=== PATIENT | female | born 1975 | race American Indian/Alaskan Native ===

== ENCOUNTER 2017-08-27 12:37 | Emergency (ER) | payer BC ==
[2017-08-27] MEDS ORDERED: CATAPRES PO ONE (12:59)
[2017-08-27 13:12] LABS: Basophils # (Auto) 0.1 K/mm3 (0.0-0.1); Basophils % (Auto) 0.7 % (0.0-1.8); Eosinophils # (Auto) 0.3 K/mm3 (0.0-0.4); Eosinophils % (Auto) 2.7 % (0.0-4.3); Hemoglobin 12.5 gm/dl (10.1-14.3); Lymphocytes # (Auto) 2.8 K/mm3 (1.2-5.4); Lymphocytes % (Auto) 27.8 % (13.4-35.0); Mean Corpuscular HGB Conc 34 % (30-34); Mean Corpuscular Hemoglobin 33 pg (28-32); Mean Corpuscular Volume 97 fl (79-97); Monocytes % (Auto) 9.9 % (0.0-7.3); Platelet Count 333 K/mm3 (140-440)
[2017-08-27 13:29] LABS: INR 0.88 (0.87-1.13)
--- NOTE | 2017-08-27 13:36 | Cat Scan Report ---
FINAL REPORT EXAM: CT HEAD/BRAIN WO CON HISTORY: neuro deficits < 6hrs or sx present upon awakening TECHNIQUE: CT examination of the head without IV contrast PRIORS: Cervical spine CT 04/24/2015 FINDINGS: No acute air-fluid level visualized in the included air-filled sinuses. Bone windows demonstrate no acute fracture. The brain is without mass, mass effect, hemorrhage, or acute infarct. There is no extra-axial intracranial bleed, brain bleed, or midline shift. The ventricles and sulci are age-appropriate. IMPRESSION: No acute CVA, intracranial bleed, or brain mass
[2017-08-27 13:43] LABS: BUN/Creatinine Ratio 19; Blood Urea Nitrogen 15 mg/dL (7-17); Calcium 9.1 mg/dL (8.4-10.2); Hemolysis Index 6
[2017-08-27 22:59] VITALS: BP 139/70
--- NOTE | 2017-08-28 00:29 | Emergency Department Report ---
HPI - General Chief Complaint: Extremity Problem,Nontraumatic Time Seen by Provider: 08/28/17 00:26 - HPI HPI: Right leg pain while driving, started in the right hip area although it to her right ankle area. States pain is 4-10 shop and accompanied by numbness. Patient stated also had some numbness in the right face. No weakness able to ambulate without difficulty. Patient has a history of rapid pressure. Denies any slurred speech, denies any headache, denies any vision problem. ED Past Medical Hx - Past Medical History Hx Hypertension: Yes - Surgical History Past Surgical History?: No - Social History Smoking Status: Former Smoker Substance Use Type: Alcohol - Medications Home Medications: Home Medications Medication Instructions Recorded Confirmed Last Taken Type Cyclobenzaprine [Flexeril] 10 mg PO TID PRN #14 tablet 04/24/15 Unknown Rx HYDROcodone/APAP 5-325 [Rocky 1 - 2 each PO Q6HR PRN #14 tablet 04/24/15 Unknown Rx 5/325] Ibuprofen [Motrin 800 MG tab] 800 mg PO Q8HR PRN #20 tablet 04/24/15 Unknown Rx Lisinopril [Zestril TAB] 10 mg PO QDAY 04/24/15 04/24/15 04/23/15 History Aspirin 81 mg PO DAILY #30 tab.chew 08/28/17 Unknown Rx Gabapentin [Neurontin] 100 mg PO Q8HR #30 capsule 08/28/17 Unknown Rx ED Review of Systems ROS: Stated complaint: RIGHT SIDE NUMB Other details as noted in HPI Comment: All other systems reviewed and negative Musculoskeletal: arthralgia Skin: denies: rash, lesions Neurological: paresthesias. denies: weakness Psychiatric: denies: anxiety, depression Physical Exam - Physical Exam Vital Signs: Vital Signs 08/27/17 08/27/17 08/27/17 12:42 15:02 15:15 Temperature 99.1 F Pulse Rate 102 H 80 Respiratory 22 15 Rate Blood Pressure 188/119 152/96 Blood Pressure [Left] O2 Sat by Pulse 100 88 Oximetry 08/27/17 08/27/17 08/27/17 16:06 17:09 17:52 Temperature 98.1 F 98.6 F Pulse Rate 72 90 Respiratory 18 16 Rate Blood Pressure Blood Pressure 152/96 180/81 [Left] O2 Sat by Pulse 100 96 97 Oximetry 08/27/17 08/27/17 08/27/17 18:00 18:15 18:30 Temperature Pulse Rate 68 Respiratory 30 H Rate Blood Pressure 164/95 164/95 175/92 Blood Pressure [Left] O2 Sat by Pulse 98 99 99 Oximetry 08/27/17 08/27/17 08/27/17 18:46 19:01 19:15 Temperature Pulse Rate 78 82 Respiratory 14 17 Rate Blood Pressure 175/92 175/92 175/92 Blood Pressure [Left] O2 Sat by Pulse 96 98 98 Oximetry 08/27/17 08/27/17 08/27/17 19:31 19:45 20:00 Temperature Pulse Rate 78 70 65 Respiratory 15 12 16 Rate Blood Pressure 175/92 129/79 128/77 Blood Pressure [Left] O2 Sat by Pulse 98 99 97 Oximetry 08/27/17 08/27/17 08/27/17 20:15 20:30 20:45 Temperature Pulse Rate 70 Respiratory 14 18 18 Rate Blood Pressure 128/77 132/84 132/84 Blood Pressure [Left] O2 Sat by Pulse 100 88 99 Oximetry 08/27/17 08/27/17 08/27/17 21:00 21:15 21:30 Temperature Pulse Rate 70 75 74 Respiratory 21 21 19 Rate Blood Pressure 128/75 128/75 125/59 Blood Pressure [Left] O2 Sat by Pulse 97 97 92 Oximetry 08/27/17 08/27/17 08/27/17 21:45 22:00 22:15 Temperature Pulse Rate 72 69 75 Respiratory 20 18 14 Rate Blood Pressure 128/75 131/67 131/67 Blood Pressure [Left] O2 Sat by Pulse 98 91 99 Oximetry 08/27/17 08/27/17 22:30 22:45 Temperature Pulse Rate 78 72 Respiratory 12 18 Rate Blood Pressure 139/70 139/70 Blood Pressure [Left] O2 Sat by Pulse 99 98 Oximetry Physical Exam: Physical Exam: - General Limitations: No Limitations General appearance: alert, in no apparent distress - Head Head exam: Present: atraumatic, normocephalic - Eye Eye exam: Present: normal appearance - ENT ENT exam: Present: mucous membranes moist - Neck Neck exam: Present: normal inspection - Respiratory Respiratory exam: Present: normal lung sounds bilaterally. Absent: respiratory distress - Cardiovascular Cardiovascular Exam: Present: normal rhythm, tachycardia. Absent: systolic murmur, diastolic murmur, rubs, gallop - GI/Abdominal GI/Abdominal exam: Present: soft, normal bowel sounds - Extremities Exam Extremities exam: Present: normal inspection - Back Exam Back exam: Present: normal inspection - Neurological Exam Neurological exam: Present: alert, oriented X3 - Psychiatric Psychiatric exam: normal affect and mood - Skin Skin exam: Present: warm, dry, intact, normal color. Absent: rash ED Course Vital Signs 08/27/17 08/27/17 08/27/17 12:42 15:02 15:15 Temperature 99.1 F Pulse Rate 102 H 80 Respiratory 22 15 Rate Blood Pressure 188/119 152/96 Blood Pressure [Left] O2 Sat by Pulse 100 88 Oximetry 08/27/17 08/27/17 08/27/17 16:06 17:09 17:52 Temperature 98.1 F 98.6 F Pulse Rate 72 90 Respiratory 18 16 Rate Blood Pressure Blood Pressure 152/96 180/81 [Left] O2 Sat by Pulse 100 96 97 Oximetry 08/27/17 08/27/17 08/27/17 18:00 18:15 18:30 Temperature Pulse Rate 68 Respiratory 30 H Rate Blood Pressure 164/95 164/95 175/92 Blood Pressure [Left] O2 Sat by Pulse 98 99 99 Oximetry 08/27/17 08/27/17 08/27/17 18:46 19:01 19:15 Temperature Pulse Rate 78 82 Respiratory 14 17 Rate Blood Pressure 175/92 175/92 175/92 Blood Pressure [Left] O2 Sat by Pulse 96 98 98 Oximetry 08/27/17 08/27/17 08/27/17 19:31 19:45 20:00 Temperature Pulse Rate 78 70 65 Respiratory 15 12 16 Rate Blood Pressure 175/92 129/79 128/77 Blood Pressure [Left] O2 Sat by Pulse 98 99 97 Oximetry 08/27/17 08/27/17 08/27/17 20:15 20:30 20:45 Temperature Pulse Rate 70 Respiratory 14 18 18 Rate Blood Pressure 128/77 132/84 132/84 Blood Pressure [Left] O2 Sat by Pulse 100 88 99 Oximetry 08/27/17 08/27/17 08/27/17 21:00 21:15 21:30 Temperature Pulse Rate 70 75 74 Respiratory 21 21 19 Rate Blood Pressure 128/75 128/75 125/59 Blood Pressure [Left] O2 Sat by Pulse 97 97 92 Oximetry 08/27/17 08/27/17 08/27/17 21:45 22:00 22:15 Temperature Pulse Rate 72 69 75 Respiratory 20 18 14 Rate Blood Pressure 128/75 131/67 131/67 Blood Pressure [Left] O2 Sat by Pulse 98 91 99 Oximetry 08/27/17 08/27/17 22:30 22:45 Temperature Pulse Rate 78 72 Respiratory 12 18 Rate Blood Pressure 139/70 139/70 Blood Pressure [Left] O2 Sat by Pulse 99 98 Oximetry - Reevaluation(s) Reevaluation #1: 08/28/17 01:27 Patient was all extremity in the ED without difficulty. Neuro exam was totally negative. ED Medical Decision Making - Lab Data Result diagrams: 08/27/17 12:52 08/27/17 12:52 Critical care attestation.: If time is entered above; I have spent that time in minutes in the direct care of this critically ill patient, excluding procedure time. ED Disposition Clinical Impression: Paresthesia Disposition: DC-01 TO HOME OR SELFCARE Is pt being admited?: No Does the pt Need Aspirin: No Condition: Undetermined Instructions: Paresthesia (ED) Prescriptions: Aspirin 81 mg PO DAILY #30 tab.chew Gabapentin [Neurontin] 100 mg PO Q8HR #30 capsule Referrals: PRIMARY CAREMD [Primary Care Provider] - 3-5 Days ROBERTO CAICEDO MD [Staff Physician] - 3-5 Days Forms: Work/School Release Form(ED)
== END 2017-08-28 00:40 | disposition home or self-care (01) ==
LOC: ED 12:37
DX: R20.2 Paresthesia of skin (principal); I10 Essential (primary) hypertension; Z87.891 Personal history of nicotine dependence; Z88.0 Allergy status to penicillin
CPT/HCPCS: 36415; 70450; 80048; 82962; 84484; 85025; 85610; 85670; 85730; 99284